=== PATIENT | female | born 1965 | race Caucasian/White ===

== ENCOUNTER 2020-07-17 09:46 | Emergency (ER) | payer OTHER ==
--- NOTE | 2020-07-17 12:00 | Event Note ---
ED Screening Note Date of service: 07/17/20 Time: 11:59 ED Screening Note: 54-year-old female patient with history of hypertension presents to the emergency department complaints of nontraumatic lower back pain radiating to both lower extremities starting 5 weeks ago. Patient was evaluated by her primary care provider, who prescribed gabapentin. States her pain has not improved with this medication. She is not currently on NSAIDs. Patient was diagnosed with a urinary tract infection at her last PCP visit. She has taken nitrofurantoin for the last week and states she is still experiencing discomfort with urination and seeing blood in her urine. She states she has about 5 days left on the antibiotic. No fever. No nausea or vomiting. Sitting in wheelchair. General: Awake, appropriately interactive, no acute distress. Neck: Supple. Full range of motion intact. Cardiovascular: Normal peripheral perfusion. Pulmonary: No respiratory distress. Patient is speaking normally without use of accessory muscles. Skin: No apparent rashes or lesions. Neurological: No facial asymmetry. Speech is clear. Follows commands. Patient is alert and oriented. Musculoskeletal: Sitting in wheelchair. Psych: Cooperative. Appropriate mood and affect. I have greeted and performed a focused rapid initial assessment of this patient. A comprehensive ED assessment and evaluation of the patient, analysis of all test results, and completion of the medical decision-making process will be conducted by additional ED providers. This initial assessment/diagnostic orders/clinical plan/treatment(s) is/are subject to change based on patients health status, clinical progression and re-assessment. Further treatment and workup at subsequent clinical provider's discretion. Patient/guardian urged not to elope from the ED as their condition may be serious if not clinically assessed and managed.
--- NOTE | 2020-07-17 12:46 | XRay Report ---
LEFT HIP 2 VIEWS INDICATION: Left hip pain. COMPARISON: None. IMPRESSION: No acute osseous or soft tissue abnormality. Minimal osteoarthritic changes are ident ified. Signer Name: Antwan Nickerson Jr, MD Signed: 07/17/2020 12:39 PM Workstation Name: [id number]
[2020-07-17 12:57] VITALS: BP 157/88
--- NOTE | 2020-07-17 13:03 | Emergency Department Report ---
ED General Adult HPI - General Chief complaint: Extremity Problem,Nontraumatic Stated complaint: LEG/HIP PAIN Time Seen by Provider: 07/17/20 12:19 Source: patient Mode of arrival: Wheelchair Limitations: No Limitations - History of Present Illness Initial comments: 54-year-old female patient with history of hypertension presents to the emergency department complaints of nontraumatic lower back pain radiating to both lower extremities starting 5 weeks ago. Patient was evaluated by her primary care provider, who prescribed gabapentin. States her pain has not improved with this medication. She is not currently on NSAIDs. Patient was diagnosed with a urinary tract infection at her last PCP visit. She has taken nitrofurantoin for the last week and states she is feeling better regarding her urinary tract infection. She states she has about 5 days left on the antibiotic. No fever. No nausea or vomiting. Patient reports that she works in a half-way and does lots of walking. Patient states that when she walks too much is when she starts having pain in her hips and lower legs. Severity scale (0 -10): 8 - Related Data Previous Rx's Medication Instructions Recorded Last Taken Type Ibuprofen [Motrin 600 MG tab] 600 mg PO Q8H PRN #30 tablet 07/17/20 Unknown Rx Allergies Allergy/AdvReac Type Severity Reaction Status Date / Time No Known Allergies Allergy Unverified 07/17/20 12:56 ED Review of Systems ROS: Stated complaint: LEG/HIP PAIN Other details as noted in HPI ED Past Medical Hx - Past Medical History Hx Hypertension: Yes Hx Diabetes: Yes - Surgical History Past Surgical History?: Yes Additional Surgical History: catarac - Social History Smoking Status: Never Smoker Substance Use Type: None - Medications Home Medications: Home Medications Medication Instructions Recorded Confirmed Last Taken Type Ibuprofen [Motrin 600 MG tab] 600 mg PO Q8H PRN #30 tablet 07/17/20 Unknown Rx ED Physical Exam - General Limitations: No Limitations General appearance: alert, in no apparent distress - Head Head exam: Present: atraumatic, normocephalic - Eye Eye exam: Present: normal appearance - ENT ENT exam: Present: mucous membranes moist - Neck Neck exam: Present: normal inspection - Respiratory Respiratory exam: Present: normal lung sounds bilaterally. Absent: respiratory distress - Cardiovascular Cardiovascular Exam: Present: regular rate, normal rhythm. Absent: systolic murmur, diastolic murmur, rubs, gallop - GI/Abdominal GI/Abdominal exam: Present: soft, normal bowel sounds - Extremities Exam Extremities exam: Present: normal inspection - Expanded Lower Extremity Exam Left Hip exam: Present: full ROM. Absent: tenderness, swelling Upper Leg exam: Present: normal inspection, full ROM Knee exam: Present: normal inspection, full ROM. Absent: tenderness Lower Leg exam: Present: normal inspection Ankle exam: Present: normal inspection Foot/Toe exam: Present: normal inspection Gait: Positive: observed and normal - Back Exam Back exam: Present: normal inspection - Neurological Exam Neurological exam: Present: alert, oriented X3 - Psychiatric Psychiatric exam: Present: normal affect, normal mood - Skin Skin exam: Present: warm, dry, intact, normal color. Absent: rash ED Course Vital Signs 07/17/20 07/17/20 07/17/20 09:51 12:54 12:56 Temperature 98.0 F 97.9 F Pulse Rate 98 H 90 Respiratory 18 18 18 Rate Blood Pressure 146/77 157/88 [Right] O2 Sat by Pulse 98 100 100 Oximetry ED Medical Decision Making - Lab Data Laboratory Tests 07/17/20 Unknown Urine Color Colorless Urine Turbidity Clear Urine pH 6.0 Ur Specific [place] 1.003 Urine Protein <15 mg/dl Urine Glucose (UA) 50 Urine Ketones Neg Urine Blood Neg Urine Nitrite Neg Urine Bilirubin Neg Urine Urobilinogen < 2.0 Ur Leukocyte Esterase Tr Urine WBC (Auto) 4.0 Urine RBC (Auto) 2.0 U Epithel Cells (Auto) 2.0 Urine Bacteria (Auto) 1+ - Radiology Data Radiology results: report reviewed Other Patient ID My Comment(s) Study Comments [facility] [address] [place] [address] XRay Report Signed Patient: SUYAPA SHAH MR#: [id number] : 1965 Acct:[id number] Age/Sex: 54 / F ADM Date: 07/17/20 Loc: ED Attending Dr: Ordering Physician: ARLYN RUTH Date of Service: 07/17/20 Procedure(s): XR hip 2-3V LT Accession Number(s): [id number] cc: ARLYN RUTH Fluoro Time In Minutes: LEFT HIP 2 VIEWS INDICATION: Left hip pain. COMPARISON: None. IMPRESSION: No acute osseous or soft tissue abnormality. Minimal osteoarthritic changes are identified. Signer Name: Antwan Nickerson Jr, MD Signed: 07/17/2020 12:39 PM Workstation Name: [id number] Transcribed By: TTR Dictated By: ANTWAN NICKERSON JR, MD Electronically Authenticated By: ANTWAN NICKERSON JR, MD Signed Date/Time: 07/17/20 1239 DD/ 1238 TD/TT: - Medical Decision Making 54-year-old female patient with history of hypertension presents to the emergency department complaints of nontraumatic lower back pain radiating to both lower extremities starting 5 weeks ago. Patient was evaluated by her primary care provider, who prescribed gabapentin. States her pain has not improved with this medication. She is not currently on NSAIDs. Patient was diagnosed with a urinary tract infection at her last PCP visit. She has taken nitrofurantoin for the last week and states she is feeling better regarding her urinary tract infection. She states she has about 5 days left on the antibiotic. No fever. No nausea or vomiting. Patient reports that she works in a half-way and does lots of walking. Patient states that when she walks too much is when she starts having pain in her hips and lower legs. Discussed with patient that her urine looks like it is improving and that she needs to continue with her antibiotics. Also discussed with patient that her x- ray did start to show some degenerative changes. Discussed with patient she can try taking ibuprofen or Aleve to see if that helps with her pain. Patient is to follow back up with her primary care provider. Critical care attestation.: If time is entered above; I have spent that time in minutes in the direct care of this critically ill patient, excluding procedure time. ED Disposition Clinical Impression: Bilateral hip pain Disposition: DC-01 TO HOME OR SELFCARE Is pt being admited?: No Does the pt Need Aspirin: No Condition: Stable Instructions: Joint Pain, [id number] Additional Instructions: X-ray of left hip shows some mild arthritis. Urinalysis shows that your urinary tract infection is clearing up. I would like for you to try ibuprofen for your pain. And it is very important for you to follow back up with your primary care provider. Please be sure to increase your water intake while taking pain medication. Prescriptions: Ibuprofen [Motrin 600 MG tab] 600 mg PO Q8H PRN #30 tablet PRN Reason: Pain Referrals: PRIMARY CARE, [Primary Care Provider] - 3-5 Days Forms: Work/School Release Form(ED)
[2020-07-17 13:27] LABS: Bacteria,Urine 1+ /HPF (Negative); Bilirubin,Urine NEG (Negative); Blood,Urine NEG (Negative); Color,Urine Colorless (Yellow); Protein,Urine <15 mg/dL mg/dL (Negative); Urobilinogen,Urine < 2.0 mg/dL (<2.0)
== END 2020-07-17 14:49 | disposition home or self-care (01) ==
LOC: ED 09:46
DX: M25.551 Pain in right hip (principal); M25.552 Pain in left hip; I10 Essential (primary) hypertension; E11.9 Type 2 diabetes mellitus without complications; Z98.890 Other specified postprocedural states; Z79.1 Long term (current) use of non-steroidal anti-inflammatories (NSAID)
CPT/HCPCS: 81001; 87086